=== PATIENT | female | born 1970 | race Caucasian/White ===

== ENCOUNTER 2019-02-04 09:53 | Emergency (ER) | payer OTHER ==
[~2019-02-04] VITALS: Ht 177.8 cm; Wt 158.8 kg
[~2019-02-04 09:53] MED LIST: DULERA 100 MCG/13 GM; LISINOPRIL-HCT1 EACH PO; LISINOPRIL20 MG PO; MOBIC7.5 MG PO; NORCO 5-325 TA1 EACH PO; PREDNISONE 20 M20 M1 PO; PROAIR HFA8.5 GM NASAL; SINGULAIR 10 MG10 M1 PO; SYMBICORT160 MCG/4. NASAL; VENTOLIN HFA INH8 GM IH; VITAMIN B-12100 MC1 PO; VITAMIN D1000 UNI1 PO; ZOLOFT50 MG PO
[2019-02-04] MEDS ORDERED: TOPAMAX100 MG PO (09:57)
[2019-02-04 10:16] LABS: POLYS 70.4 % (36.0-66.0)
[2019-02-04 10:18] LABS: ABSOLUTE NEUTROPHILS 7.8 thou/uL (1.4-8.2); BASOPHILS 1.1 % (0.0-2.0); EOSINOPHILS 3.1 % (0.0-3.0); HEMATOCRIT 38.3 % (37.0-47.0); HEMOGLOBIN 12.5 gm/dL (12.0-15.0); LYMPHOCYTES 19.7 % (24.0-44.0); MCH 28.1 pg (26.0-34.0); MCHC 32.7 g/dL (28.0-37.0); MCV 85.9 fL (80.0-100.0); MONOCYTES 5.7 % (1.0-8.0); RBC 4.46 mil/uL (4.20-5.00); RDW 14.2 % (10.5-14.5); WBC 11.8 thou/uL (4.0-11.0)
[2019-02-04 10:33] LABS: ANION GAP 9 mmol/L (7-16); BUN 14 mg/dL (7-18); CALCIUM 9.3 mg/dL (8.5-10.1); CHLORIDE 103 mmol/L (98-107); CO2 25 mmol/L (21-32); CREATININE 0.7 mg/dL (0.6-1.0); GLUCOSE 95 mg/dL (74-106); POTASSIUM 3.8 mmol/L (3.5-5.1); SODIUM 137 mmol/L (136-145)
[2019-02-04 10:41] LABS: ALBUMIN 3.6 g/dL (3.4-5.0); SGOT 16 U/L (15-37); SGPT 13 U/L (30-65); TOTAL BILIRUBIN 0.4 mg/dL (<0.1-1.0); TOTAL PROTEIN 7.4 g/dL (6.4-8.2); TROPONIN-I <0.06 ng/mL (<0.06)
[2019-02-04 11:42] LABS: PLATELET COUNT 271 thou/uL (150-400); PLATELET ESTIMATE NORMAL
[2019-02-04 12:30] VITALS: BP 148/98
--- NOTE | 2019-02-05 16:51 | EKG ---
[place] [address] [facility] [place] [address] ELECTROCARDIOGRAM REPORT Name: MINE LAND Room #: DEP [facility]#: [id number] Admission: 02/04/19 Attend Phys: Discharge: 02/04/19 Date of : 66 Report #: [id number] THIS REPORT FOR: //name// [facility] ED Test Date: 2019-02-04 Test Time: 09:58:53 Pat Name: MINE LAND Department: Room: Gender: F Domestic Helper: KF : 1970 Requested By: Babar Piña Order Number: [id number] MD: Charlie Gupta Measurements Intervals [place] Rate: 76 P: 14 HI: 131 QRS: 15 QRSD: 103 T: 166 QT: 366 QTc: 412 Interpretive Statements Sinus rhythm Nonspecific ST and T wave abnormality Compared to ECG 08/02/2013 16:19:39 No significant change was found Electronically Signed On 02-05-2019 16:51:40 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
== END 2019-02-04 12:31 | disposition home or self-care (01) ==
LOC: ER 09:53
PROVIDERS: Emergency Medicine
DX: R00.2 Palpitations (principal); R00.0 Tachycardia, unspecified; R07.9 Chest pain, unspecified; I10 Essential (primary) hypertension; J45.909 Unspecified asthma, uncomplicated; F32.9 Major depressive disorder, single episode, unspecified; Z86.2 Personal history of diseases of the blood and blood-forming organs and certain disorders involving the immune mechanism